=== PATIENT | female | born 1995 | race Caucasian/White ===

== ENCOUNTER 2017-03-05 09:51 | Emergency (ER) | payer SELFPAY ==
--- NOTE | 2017-03-05 10:35 | CT ---
HEAD CT WITHOUT CONTRAST: Date: 03-05-17 Comparison: None. History: Vertigo, nausea, and abdominal pain. Technique: Serial axial CT imaging at 5 mm intervals from vertex through skull base without contrast . FINDINGS: The imaged paranasal sinuses/mastoid air cells are well aerated. There is no displaced calvarial fra cture. No intracranial hemorrhage, midline shift, mass effect or ventricular enlargement. IMPRESSION: No acute findings. POS: [facility]
[2017-03-05] MEDS ORDERED: Meclizine HCl 25 MG TAB ONE (10:48)
[2017-03-05] MEDS ORDERED: Diazepam 5 MG TAB ONE (12:24)
== END 2017-03-05 14:34 | disposition home or self-care (01) ==
LOC: ERS 09:51
DX: R42 Dizziness and giddiness (principal); J45.909 Unspecified asthma, uncomplicated
CPT/HCPCS: 70450

== ENCOUNTER 2018-06-07 18:57 | Emergency (ER) | payer OTHER, SELFPAY ==
[2018-06-07] MEDS ORDERED: Ibuprofen 800 MG TAB ONE ×2 (19:15→20:03)
[2018-06-07] MEDS ORDERED: diphenhydrAMINE 25 MG CAP ONE (20:03)
== END 2018-06-07 20:10 | disposition home or self-care (01) ==
LOC: ERS 18:57
DX: J11.1 Influenza due to unidentified influenza virus with other respiratory manifestations (principal); J45.909 Unspecified asthma, uncomplicated; F41.9 Anxiety disorder, unspecified; Z79.899 Other long term (current) drug therapy
CPT/HCPCS: 87804; 99283; Q0163

== ENCOUNTER 2019-02-16 16:37 | Emergency (ER) | payer SELFPAY ==
[2019-02-16] MEDS ORDERED: Meclizine HCl 25 MG TAB ONE (18:53)
[2019-02-16] MEDS ORDERED: Ondansetron ODT 4 MG TAB ONE (18:53)
--- NOTE | 2019-02-22 00:17 | EKG ---
Test Reason : Blood Pressure : / mmHG Vent. Rate : 076 BPM Atrial Rate : 076 BPM P-R Int : 132 ms QRS Dur : 082 ms QT Int : 376 ms P-R-T Axes : 065 002 014 degrees QTc Int : 423 ms Normal sinus rhythm with sinus arrhythmia T wave abnormality, consider anterior ischemia Abnormal ECG Confirmed by OMAR REA ([id number]), editor greeting card ELSA BERGER ([id number]) on 02/22/2019 12:17:06 AM Referred By: Confirmed By:OMAR REA
== END 2019-02-16 19:10 | disposition home or self-care (01) ==
LOC: ERS 16:37
DX: S06.0X9A Concussion with loss of consciousness of unspecified duration, initial encounter (principal); J45.909 Unspecified asthma, uncomplicated; F41.9 Anxiety disorder, unspecified; Z79.899 Other long term (current) drug therapy; Y04.8XXA Assault by other bodily force, initial encounter
CPT/HCPCS: 93005; J8597; Q0162